=== PATIENT | male | born 1970 | race Caucasian/White ===

== ENCOUNTER 2018-09-15 21:43 | Emergency (ER) | payer OTHER ==
[2018-09-15] MEDS ORDERED: NS(*) 0.9% 500 ML BAG 500 ML IV ONE (21:48)
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
[2018-09-15] MEDS ORDERED: fentaNYL CITR 100 MCG/2 ML AMP IVP ONE (21:50)
[2018-09-15] MEDS ORDERED: ONDANSETRON 4 MG/2 ML VIAL IVP ONE (21:50)
[2018-09-15 22:06] LABS: PLATELET COUNT, AUTOMATED 234 K/uL (150-450)
[2018-09-15] MEDS ORDERED: IOPAMIDOL 76% 100 ML INFUS BTL 100 ML ONE (22:08)
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
[2018-09-15 22:30] LABS: INR 0.95
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
[2018-09-15 23:30] VITALS: BP 135/91
[2018-09-15] MEDS ORDERED: ACET/HYDROC 5/325MG TH ER ONLY 2 TAB/BOTTLE PO ONE (23:30)
[2018-09-15] MEDS ORDERED: LOR5/325 PO (23:31)
== END 2018-09-15 23:39 | disposition home or self-care (01) ==
LOC: ER 21:50
DX: S22.42XA Multiple fractures of ribs, left side, initial encounter for closed fracture (principal); R49.0 Dysphonia; V29.88XA Motorcycle rider (driver) (passenger) injured in other specified transport accidents, initial encounter
CPT/HCPCS: 71045; 71260; 72125; 74177; 80305; 80320; 81001; 82150; 83605; 83690; 85025; 85610; 85730; 96374; 96375; 99284; J2405; J3010; J7040; L0172; Q9967; 82040; 82247; 82310; 82374; 82435; 82565; 82947; 84075; 84132; 84155; 84295; 84450; 84460; 84520